=== PATIENT | female | born 1960 | race Caucasian/White ===

== ENCOUNTER → 2017-01-30 | Outpatient (CLI) | payer BC ==
[~2017-01-30] MED LIST: AMLO5TAB2 PO; ASPI81TA2 PO; ATOR80TA76 PO; CITA-50 PO; DEXA4TAB PO; HYDR-4246 PO; LEVO500T63 PO; NAPR550T4 PO; NITR0.4T SL; PROC10TA PO; SALINE FLUSH 10ml SYRINGE ONE; TEMA30CA PO
--- NOTE | 2017-01-30 15:44 | DI ---
Indication: ITS.REASON: Z79.01 jail (current) use of anticoagulants PROCEDURE: NM MUGA, CARDIAC WALL MOTION: Comparison: December 21, 2016 RESTING RADIONUCLIDE EQUILIBRIUM ANGIOCARDIOGRAM: Following intravenous administration of 33.8mCi of technetium-99m pyrophosphate, with red blood cell labeling by in vitro technique, cardiac blood pool imaging was obtained in the three standard views. The left ventricular ejection fraction was 48%. Impression: Left ventricular ejection fraction of 48%. This is decreased from 53.3% previously. .
== END ==
LOC: IMA 13:20
PROVIDERS: ATTEND Internal Medicine Hematology & Oncology
DX: Z79.01 Long term (current) use of anticoagulants (principal); R93.1 Abnormal findings on diagnostic imaging of heart and coronary circulation
CPT/HCPCS: 78472; A9560

== ENCOUNTER → 2017-03-01 | Outpatient (CLI) | payer BC ==
--- NOTE | 2017-03-01 10:27 | DI ---
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 The left ventricular ejection fraction was 46.4%. Impression: Left ventricular ejection fraction of 46.4%. This is decreased from 48% previously. .
== END ==
LOC: IMA 08:01
PROVIDERS: ATTEND Internal Medicine Hematology & Oncology
DX: Z79.899 Other long term (current) drug therapy (principal)
CPT/HCPCS: 78472; A9560

== ENCOUNTER → 2017-03-05 | Outpatient (CLI) | payer BC ==
[~2017-03-05] MED LIST changes: -SALINE FLUSH 10ml SYRINGE ONE
--- NOTE | 2017-03-06 12:49 | ECHOF ---
DATE 03/05/2017 INDICATION Anticipating chemotherapy/potentially cardiotoxic drug. This is to assess LV ejection fraction. (Breast cancer-- long-term drug use.) TECHNICAL QUALITY Technically excellent 2-D, M-mode, Doppler echocardiographic images were submitted for interpretation. FINDINGS 1. CARDIAC CHAMBERS. All cardiac chamber measurements are normal. Aortic root diameter is normal. RV size and contractility appeared normal. 2. LEFT VENTRICLE. Wall thickness is normal. Wall motion analysis is normal. Systolic function is normal. Ejection fraction is estimated about 60%. RV contractility appeared normal. 3. VALVES. Aortic, mitral and tricuspid valve structure and motion appear normal with normal valve excursion. 4. DOPPLER. Shows trace regurgitation involving mitral, tricuspid and pulmonic valves, none of hemodynamically significance. Normal flow velocities throughout were present. 5. Systolic PA pressure is normal, estimated at 28 mmHg. 8. Central venous pressure is normal. No evidence of pericardial effusion, intracardiac masses or demonstrable shunts. IMPRESSION 1. Normal LV systolic and diastolic function, EF estimated about 60%. 2. No significant valvular dysfunction. MTDD
== END ==
LOC: IMA 13:50
PROVIDERS: ATTEND Internal Medicine Hematology & Oncology
DX: Z79.899 Other long term (current) drug therapy (principal)
CPT/HCPCS: 93306

== ENCOUNTER → 2017-04-06 | Outpatient (CLI) | payer BC ==
--- NOTE | 2017-04-08 10:06 | ECHOF ---
DATE OF STUDY 04/06/2017 INDICATIONS Breast cancer, chronic drug therapy/chemotherapy potentially with cardiotoxicity. Need to assess LV ejection fraction at oncologist's request. TECHNICAL QUALITY Technically good 2D, M-mode, Doppler echocardiographic images were submitted for interpretation. FINDINGS 1. CARDIAC CHAMBERS: All cardiac chamber measurements are normal. Aortic root diameter is normal. Left ventricle measures 4.7 cm. RV size and contractility appear normal. 2. LEFT VENTRICLE: Wall thickness is normal. Wall motion analysis is normal. Systolic function appears preserved. Ejection fraction measures 60% - visually estimated at 55%-60%. Diastolic function is normal. 3. VALVES: Aortic, mitral and tricuspid valve structure and motion appear normal. Normal valve excursion. 4. DOPPLER: Trace regurgitation involving mitral, tricuspid and pulmonic valves, none of hemodynamic significance. 5. No evidence of pericardial effusion, intracardiac masses or demonstrable shunts. 6. Systolic PA pressure is normal. Central venous pressure is estimated to be normal. IMPRESSION Normal LV systolic and diastolic function. EF 55%-60%. Normal LV cavity size. No significant valvular dysfunction. MTDD
== END ==
LOC: IMA 12:27
PROVIDERS: ATTEND Internal Medicine Hematology & Oncology
DX: Z79.899 Other long term (current) drug therapy (principal)
CPT/HCPCS: 93306